=== PATIENT | male | born 1995 ===

== ENCOUNTER 2019-03-29 21:25 | Emergency (ER) | payer SELFPAY ==
[~2019-03-29] VITALS: Ht 182.9 cm; Wt 77.2 kg
[2019-03-29 21:29] VITALS: BP 129/80
[2019-03-29] MEDS ORDERED: ibuprofen tablet 400 MG TABLET PO ONE (22:45)
[2019-03-29] MEDS ORDERED: ibuprofen 200mg tablet PO ONE (22:50)
[2019-03-29] MEDS ORDERED: IBUP-1984 PO (22:52)
[2019-03-29] MEDS ORDERED: ACET-2119 PO (22:52)
== END 2019-03-29 23:17 | disposition home or self-care (01) ==
LOC: ER 21:26
DX: S43.492A Other sprain of left shoulder joint, initial encounter (principal); Z79.899 Other long term (current) drug therapy; W18.39XA Other fall on same level, initial encounter; Y93.67 Activity, basketball; Y92.89 Other specified places as the place of occurrence of the external cause; Y99.8 Other external cause status
CPT/HCPCS: 73030; 99283